=== PATIENT | female | born 1950 | race Caucasian/White ===

== ENCOUNTER 2023-05-13 10:03 | Emergency (ER) | payer MEDICARE, MEDICAID, SELFPAY ==
--- NOTE | ~2023-05-13 | CT_ITS ---
EXAMINATION: CT ABDOMEN AND PELVIS WITHOUT CONTRAST CLINICAL INFORMATION: Right lower quadrant pain COMPARISON: None available. TECHNIQUE: Multidetector volumetric imaging was performed from the superior aspect of the liver through the pubic symphysis. Sagittal and coronal reformatted images were obtained on the technologist's workstation. This CT examination was performed using dose optimization techniques as appropriate, variously including the following: *Automated exposure control *Adjustment of mA and/or kV according to patient size (this includes techniques or standardized protocols for targeted exams where dose is matched to indication/reason for exam; i.e. extremities or head) *Use of iterative reconstruction technique DLP: 462 mGy-cm FINDINGS: LUNG BASES: The visualized lung bases are unremarkable. LIVER, GALLBLADDER, AND BILIARY TREE: The liver is normal in size, shape, and attenuation. No focal hepatic lesion or biliary ductal dilatation is present. The gallbladder is unremarkable with no evidence of radiopaque gallstones, gallbladder wall thickening, or obvious pericholecystic inflammatory changes. PANCREAS: There is mild atrophy of the pancreas with no focal lesion seen. SPLEEN: Unremarkable. ADRENAL GLANDS: Unremarkable. KIDNEYS AND URETERS: The kidneys are normal in size, shape, and attenuation. No hydronephrosis, hydroureter, or calculi seen. No perinephric stranding. BLADDER: Unremarkable. GASTROINTESTINAL TRACT: There is a large amount of stool seen in ascending and sigmoid colon without distention. The small bowel loops are normal caliber. Appendix is normal caliber. No inflammatory process seen in the abdomen. ABDOMINAL WALL: Small umbilical hernia containing fat is noted. LYMPH NODES: Normal. VASCULAR: Unremarkable. PELVIC VISCERA: The uterus is anteverted and appears unremarkable. No adnexal mass seen. There is no free fluid. OSSEOUS STRUCTURES: No aggressive lytic or sclerotic process seen. There is mild degenerative disc changes and ventral spondylosis lower thoracic spine. CT/CT abdomen pelvis wo IV con IMPRESSION: 1. No acute intra-abdominal process seen. 2. Moderate constipation. Normal appendix. No obstruction Fleischner guidelines were followed.
[2023-05-13 10:08] VITALS: BP 173/102; PULSE 120; RESP 19; TEMP 36.6; O2SAT 98; BMI 25.0
[2023-05-13 11:04] LABS: Alanine Aminotransferase 14 U/L (0-31); Albumin Level 4.2 g/dL (3.5-5.0); Alkaline Phosphatase 104 U/L (39-117); Anion Gap 17 (12-20); Aspartate Amino Transferase 21 U/L (5-31); Bilirubin Direct 0.4 mg/dL (0.0-0.5); Bilirubin Total 1.1 mg/dL (0.0-1.0); Blood Urea Nitrogen 10 mg/dL (9-16); Calcium 10.1 mg/dL (8.4-10.2); Carbon Dioxide 25 mmol/L (22-29); Chloride 105 mmol/L (96-108); Creatinine Clr Calc Pharmacy 62.8; Estimated Glomerular Filt Rate > 60; Glucose Random 143 mg/dL (60-115); Lipase 60 U/L (8-78); Potassium 3.3 mmol/L (3.3-5.1); Sodium 144 mmol/L (135-145); Total Protein 7.8 g/dL (6.5-8.0)
[2023-05-13 13:05] VITALS: BP 170/89; PULSE 77; RESP 16; TEMP 37.2; O2SAT 99
--- NOTE | 2023-05-13 13:05 | ED.GENADULT ---
HPI - General Adult General Chief complaint: General Medical Stated complaint: Depression Crisis Time Seen by Provider: 05/13/23 12:42 Source: patient and family Mode of arrival: ambulatory Limitations: no limitations History of Present Illness HPI narrative: this is a 73-year-old female History of anxiety, depression, hypertension presenting to the emergency department with complaints of anxiety, depression, fatigue and malaise also reporting right lower quadrant abdominal pain times a week. Patient reports that she has not had much energy to do anything, feels anxious all day long, gets scared easily . She reports she moved from [place] a few months ago and since then has not been taking any of her medications. Not suicidal or homicidal. No hallucinations. Denies chest pain, shortness of breath, nausea, vomiting, changes in bowel habits or urination, headache, vision changes, dizziness or weakness. Related Data Allergies Allergy/AdvReac Type Severity Reaction Status Date / Time No Known Allergies Allergy Mild NONE Verified 05/13/23 10:07 Review of Systems Review of Systems: Constitutional : No Weight loss, No Fever, No Chills, No Fatigue, No Malaise ENT/Mouth : No sore throat, No Rhinorrhea Eyes: No Eye Pain, No Swelling, No Redness Cardiovascular : No Chest Pain, No SOB, No Dyspnea on Exertion, No Orthopnea, No Edema, No Palpitations Respiratory : No Cough, No Sputum, No Wheezing Gastrointestinal : No Nausea, No Vomiting, No Diarrhea, No Constipation, + abdominal Pain, No Hematochezia, No Melena Genitourinary : No Dysuria, No Urinary Frequency, No Hematuria, Musculoskeletal : No joint pain, No Myalgias, No Joint Swelling Skin : No Skin Lesions, No rash Neuro : No Weakness, No Numbness, No Dizziness, No Headache Psych : No Anxiety/Panic, + Depression All other systems reviewed and are negative Yes all other systems are reviewed and are negative [facility] Past Medical History Attestation statement: The following information was validated with the patient. Source: old records reviewed and nursing notes reviewed Social History Social History Alcohol intake: never Smoked in Last 30 Days: No Use of substances other than those prescribed or required for medical reasons: No Advance Directives: No Physical Exam ED Vital Signs: Vital Signs - 24 hr 05/13/23 10:08 05/13/23 13:05 05/13/23 14:00 Temperature 98 F 99.0 F Pulse Rate 120 H 77 92 Respiratory Rate 19 16 16 Blood Pressure 173/102 H 170/89 H 180/94 H Pulse Oximetry 98 99 99 Oxygen Delivery Method Room Air Room Air Room Air BMI result Body Mass Index 25.0 patient's blood pressure noted to be elevated likely secondary to non med compliance. Appearance: Alert.? Oriented X3.? No acute distress.? Head: Normocephalic, atraumatic, no step-offs or deformities Eyes: Pupils equal, round and reactive to light.? ENT: Pharynx normal.? Neck: Normal inspection.? Neck supple.? CVS: Normal heart rate and rhythm.? Pulses normal.? Respiratory: No respiratory distress.? Breath sounds normal.? Abdomen: Soft and +RLQ tenderness.? Skin: Skin warm and dry.? Normal skin color.? Normal skin turgor.? Extremities: No lower extremity edema.? No calf ttp. 5/5 strength to bilateral upper and lower extremities Neuro: Oriented X 3.? No motor deficit.? No sensory deficit. CN 2-12 intact Course Reevaluation(s) Reevaluation #1: CBC unremarkable. Chemistry no acute findings. UA clean. No acute intra-abdominal process seen. Moderate constipation. Normal appendix. No obstruction. Patient having normal bowel movements. At this time patient will be placed into observation to allow more time to be evaluated by care team due to her current depression. A time observation was started patient calm cooperative no acute distress will continue to monitor. Time: 15:29 Medications Administered Discontinued Medications Generic Name Dose Route Start Last Admin Trade Name Freq PRN Reason Stop Dose Admin Acetaminophen 650 mg 05/13/23 14:12 05/13/23 14:47 Acetaminophen 325 Mg Tablet PO 05/13/23 14:13 650 mg ONCE ONE Administration Medical Decision Making Medical Decision Making [facility] Narrative: 1300 This is a 73-year-old female presenting with anxiety, depression for the past few months worsening, non med compliant. Also reporting right lower quadrant abdominal pain times a week. Here with son. Physical examination with right lower quadrant tenderness to palpation. Patient noted to be hypertensive likely secondary to non med compliance. Abdominal pain likely UTI versus cystitis versus viral illness versus appendicitis. Unlikely cholecystitis, pancreatitis, diverticulitis, no signs of acute abdomen or obstruction. Depression likely secondary to non med compliance . Other differentials include bipolar disorder schizophrenia Or seasonal depression. Hypertension likely secondary to non med compliance I do not suspect hypertensive urgency or emergency. Plan labs, urine, imaging. Differential Diagnosis Differential Diagnoses: The differential diagnosis associated with the presentation includes Abdominal pain likely UTI versus cystitis versus viral illness versus appendicitis. Unlikely cholecystitis, pancreatitis, diverticulitis, no signs of acute abdomen or obstruction. Depression likely secondary to non med compliance . Other differentials include bipolar disorder schizophrenia Or seasonal depression. Hypertension likely secondary to non med compliance I do not suspect hypertensive urgency or emergency. Admission/Observation Consideration of admission/observation: Escalation of care including admission/observation considered Lab Data MDM Lab Attestation statement: I reviewed the patient's lab results. 05/13/23 10:42 05/13/23 10:42 Labs: Lab Results 05/13/23 Range/Units 10:42 WBC 6.0 (4.8-10.8) X10*3/uL RBC 4.49 (4.20-5.50) X10*6/uL Hgb 14.2 (12.0-16.0) g/dl Hct 43.2 (37.0-47.0) % MCV 96.2 (80.0-98.0) fL MCH 31.6 (27.0-33.0) pg MCHC 32.9 (31.0-35.0) g/dl RDW 14.2 (11.0-16.0) % Plt Count 204 (160-400) X10*3/uL MPV 9.4 (9.4-12.3) fL Immature Gran % (Auto) 0.2 (0.0-0.4) % Neut % (Auto) 46.6 (45-73) % Lymph % (Auto) 44.5 H (20-40) % [place] % (Auto) 6.4 (2-11) % Eos % (Auto) 1.5 (0-4) % Baso % (Auto) 0.8 (0-2) % Lymph # (Auto) 2.7 (1.2-4.9) X10*3/uL [place] # (Auto) 0.4 (0.1-1.2) X10*3/uL Eos # (Auto) 0.1 (0.0-0.4) X10*3/uL Baso # (Auto) 0.1 (0.0-0.2) X10*3/uL Abs Immat Gran (auto) 0.01 (0.00-0.03) X10*3/uL Absolute Neuts (auto) 2.8 (2.0-8.3) x10*3/uL Absolute Nucleated RBC 0.000 (0.0-0.012) X10*3/uL Nucleated RBC % (auto) 0.0 (0.0-0.2) /100WBC Sodium 144 (135-145) mmol/L Potassium 3.3 (3.3-5.1) mmol/L Chloride 105 (96-108) mmol/L Carbon Dioxide 25 (22-29) mmol/L Anion Gap 17 (12-20) BUN 10 (9-16) mg/dL Creatinine 0.67 (0.5-1.4) mg/dL Estim Creat Clear Calc 62.8 Estimated GFR > 60 Random Glucose 143 H (60-115) mg/dL Calcium 10.1 (8.4-10.2) mg/dL Total Bilirubin 1.1 H (0.0-1.0) mg/dL Direct Bilirubin 0.4 (0.0-0.5) mg/dL AST 21 (5-31) U/L ALT 14 (0-31) U/L Alkaline Phosphatase 104 (39-117) U/L Total Protein 7.8 (6.5-8.0) g/dL Albumin 4.2 (3.5-5.0) g/dL Lipase 60 (8-78) U/L Urine Color Yellow Urine Appearance Clear Urine pH 7.0 (5.0-9.0) Ur Specific [place] 1.020 (1.005-1.025) Urine Protein Negative (Neg-Trace) mg/dL Urine Glucose (UA) Negative (Negative) mg/dL Urine Ketones Trace (Negative) mg/dL Urine Blood Negative (Negative) Urine Nitrite Negative (Negative) Ur Leukocyte Esterase Small (1+) H (Negative) Urine RBC 0-2 (0-2) /HPF Urine WBC 6-10 H (0-5) /HPF Ur Squamous Epith Cells 0-2 (0-2) /HPF Urine Bacteria None Seen (None Seen) Hyaline Casts 0-2 (0-2) /LPF Independent Interpretation I performed an independent interpretation of an: CT Scan Radiology Impression Discussion of test interpretation with radiology: I have reviewed the radiologist's reading. Independent Historian Clinical information obtained from an independent historian. History obtained from or confirmed by: Other (son) Chronic Conditions Patient?s care impacted by: Hypertension Discharge Plan Discharge Clinical Impression: Depression, Abdominal pain, RLQ Patient Disposition: Still a Patient Instructions: Depression (ED), Abdominal Pain (ED) Additional Instructions: Take your medications as prescribed. If you were prescribed antibiotics today, it is important that you take your medication to their entirety, do not skip any doses, do not finish them early. Follow-up with your primary care provider this week. Return to the emergency department with new or worsening symptoms. Such as fevers, chills, chest pain, shortness of breath, nausea, vomiting, dizziness, headache, vision changes, lethargy In case of emergency call 911 Referrals: Physician,None [Primary Care Provider] - 2 days Stand Alone Forms: Work/School Release
--- NOTE | 2023-05-13 13:10 | PC.NURSE ---
a&ox3, vss and up to date. pt comes in today d/t increased depression for months. per pt's son, pt went to [place] and a family member while she was there - since returning, pt has been depressed ever since. pt currently denies SI/HI. pt able to eat/drink but is noncompliant w/ medications, has not been taking care of herself physically/mentally and just wants to stay in bed. pt also c/o 5/10 RLQ pain at this time. pt speaking w/ ED provider at this time. pt's son bedside for support. respirations even and unlabored. call burrell placed within reach.
[2023-05-13 14:00] VITALS: BP 180/94; PULSE 92; RESP 16; O2SAT 99
--- NOTE | 2023-05-13 14:56 | PC.NURSE ---
medication administered per provider order. pt and pt's son requesting if they can speak w/ care team. this RN will reach out.
--- NOTE | 2023-05-13 15:23 | PC.NURSE ---
Patient's son (Sabine) [phone] pt's son, sabine, is emergency contact for pt. this RN reached out to CARE team in regards to pt's depression. CARE team states that they are unaware on when they will see pt but pt gives verbal consent to this RN that any information can be discussed with primary contact.
[2023-05-13 16:00] VITALS: BP 179/95; PULSE 71; RESP 16; O2SAT 98
--- NOTE | 2023-05-13 16:15 | PC.NURSE ---
CARE TEAM requesting UTOX at this time - called chemistry and they stated that they will add it on.
[2023-05-13 17:18] LABS: Glucose, Whole Blood 95 mg/dL (60-115)
--- NOTE | 2023-05-13 17:20 | PC.NURSE ---
pt has hx of DM - POC obtained = 95mg/dL. pt's son back for support. pt son upset at this time d/t CARE team still not seeing pt. this RN politely informed pt and her son that d/t pt's physical/mental status and that she denied SI/HI, care team had other pt's in line as well. pharmacy was able to complete a medication reconciliation but pt's still unhappy w/ care at this time.
--- NOTE | 2023-05-13 17:59 | PC.NURSE ---
ED provider aware that pt/son is unhappy w/ care at this time. pt's son states that he is not unhappy w/ this RN/provider but with care team and would like to file a complaint. GARY Eckert speaking w/ pt at this time to formulate plan.
--- NOTE | 2023-05-13 18:09 | ED.GENADULT ---
HPI - General Adult General Chief complaint: General Medical Stated complaint: Depression Crisis Time Seen by Provider: 05/13/23 12:42 Source: patient and family Mode of arrival: ambulatory Limitations: no limitations Related Data Previous Rx's Medication Instructions Recorded atorvastatin 40 mg tablet 40 mg PO BEDTIME #30 tabs 05/13/23 docusate sodium 100 mg capsule 100 mg PO BID #20 caps 05/13/23 (Colace) lisinopril 40 mg tablet 40 mg PO DAILY #30 tabs 05/13/23 polyethylene glycol 3350 17 17 g PO BID #238 grams 05/13/23 gram/dose oral powder (Miralax) sennosides 8.6 mg tablet (senna) 8.6 mg PO BEDTIME #14 tabs 05/13/23 Allergies Allergy/AdvReac Type Severity Reaction Status Date / Time No Known Allergies Allergy Mild NONE Verified 05/13/23 10:07 [facility] Social History Social History Alcohol intake: never Smoked in Last 30 Days: No Use of substances other than those prescribed or required for medical reasons: No Advance Directives: No Physical Exam ED Vital Signs: Vital Signs - 24 hr 05/13/23 10:08 05/13/23 13:05 05/13/23 14:00 Temperature 98 F 99.0 F Pulse Rate 120 H 77 92 Respiratory Rate 19 16 16 Blood Pressure 173/102 H 170/89 H 180/94 H Pulse Oximetry 98 99 99 Oxygen Delivery Method Room Air Room Air Room Air 05/13/23 16:00 Temperature Pulse Rate 71 Respiratory Rate 16 Blood Pressure 179/95 H Pulse Oximetry 98 Oxygen Delivery Method Room Air BMI result Body Mass Index 25.0 Course Reevaluation(s) Reevaluation #1: CBC within normal limits. Chemistry unremarkable. Normal lipase. Point of care glucose 95. UA no infection. CT abdomen and pelvis no acute intra-abdominal process seen. Moderate constipation will give stool softeners for home. Normal appendix, no obstruction. Patient would to leave prior to seeing the care team. Not suicidal or homicidal. Patient would like a refill on atorvastatin 40 mg at bedtime and lisinopril 40 mg p.o. daily will fill these medications, has not had her A1c or sugar checked in a while her sugar was normal today I told her that since she has not had her diabetes meds in a while this should be managed by primary care I did provide her with a list of primary care is in the area that she should call 1st thing tomorrow morning to schedule appointment this week. Educated patient on diagnosis and treatment plan, answered all question, patient verbalizes understanding. At this time patient will be discharged home, advised to return with new or worsening symptoms. Educated on worrisome signs and symptoms and when to return. At this time I feel comfortable discharge home. Time: 18:10 Medications Administered Discontinued Medications Generic Name Dose Route Start Last Admin Trade Name Marla PRN Reason Stop Dose Admin Acetaminophen 650 mg 05/13/23 14:12 05/13/23 14:47 Acetaminophen 325 Mg Tablet PO 05/13/23 14:13 650 mg ONCE ONE Administration Medical Decision Making Lab Data 05/13/23 10:42 05/13/23 10:42 Labs: Lab Results 05/13/23 05/13/23 Range/Units 10:42 17:12 WBC 6.0 (4.8-10.8) X10*3/uL RBC 4.49 (4.20-5.50) X10*6/uL Hgb 14.2 (12.0-16.0) g/dl Hct 43.2 (37.0-47.0) % MCV 96.2 (80.0-98.0) fL MCH 31.6 (27.0-33.0) pg MCHC 32.9 (31.0-35.0) g/dl RDW 14.2 (11.0-16.0) % Plt Count 204 (160-400) X10*3/uL MPV 9.4 (9.4-12.3) fL Immature Gran % (Auto) 0.2 (0.0-0.4) % Neut % (Auto) 46.6 (45-73) % Lymph % (Auto) 44.5 H (20-40) % [place] % (Auto) 6.4 (2-11) % Eos % (Auto) 1.5 (0-4) % Baso % (Auto) 0.8 (0-2) % Lymph # (Auto) 2.7 (1.2-4.9) X10*3/uL [place] # (Auto) 0.4 (0.1-1.2) X10*3/uL Eos # (Auto) 0.1 (0.0-0.4) X10*3/uL Baso # (Auto) 0.1 (0.0-0.2) X10*3/uL Abs Immat Gran (auto) 0.01 (0.00-0.03) X10*3/uL Absolute Neuts (auto) 2.8 (2.0-8.3) x10*3/uL Absolute Nucleated RBC 0.000 (0.0-0.012) X10*3/uL Nucleated RBC % (auto) 0.0 (0.0-0.2) /100WBC Sodium 144 (135-145) mmol/L Potassium 3.3 (3.3-5.1) mmol/L Chloride 105 (96-108) mmol/L Carbon Dioxide 25 (22-29) mmol/L Anion Gap 17 (12-20) BUN 10 (9-16) mg/dL Creatinine 0.67 (0.5-1.4) mg/dL Estim Creat Clear Calc 62.8 Estimated GFR > 60 POC Glucose 95 (60-115) mg/dL Random Glucose 143 H (60-115) mg/dL Calcium 10.1 (8.4-10.2) mg/dL Total Bilirubin 1.1 H (0.0-1.0) mg/dL Direct Bilirubin 0.4 (0.0-0.5) mg/dL AST 21 (5-31) U/L ALT 14 (0-31) U/L Alkaline Phosphatase 104 (39-117) U/L Total Protein 7.8 (6.5-8.0) g/dL Albumin 4.2 (3.5-5.0) g/dL Lipase 60 (8-78) U/L Urine Color Yellow Urine Appearance Clear Urine pH 7.0 (5.0-9.0) Ur Specific [place] 1.020 (1.005-1.025) Urine Protein Negative (Neg-Trace) mg/dL Urine Glucose (UA) Negative (Negative) mg/dL Urine Ketones Trace (Negative) mg/dL Urine Blood Negative (Negative) Urine Nitrite Negative (Negative) Ur Leukocyte Esterase Small (1+) H (Negative) Urine RBC 0-2 (0-2) /HPF Urine WBC 6-10 H (0-5) /HPF Ur Squamous Epith Cells 0-2 (0-2) /HPF Urine Bacteria None Seen (None Seen) Hyaline Casts 0-2 (0-2) /LPF Discharge Plan Discharge Clinical Impression: Depression, Abdominal pain, RLQ Patient Disposition: Still a Patient Instructions: Depression (ED), Abdominal Pain (ED) Additional Instructions: Take your medications as prescribed. If you were prescribed antibiotics today, it is important that you take your medication to their entirety, do not skip any doses, do not finish them early. Follow-up with your primary care provider this week. Return to the emergency department with new or worsening symptoms. Such as fevers, chills, chest pain, shortness of breath, nausea, vomiting, dizziness, headache, vision changes, lethargy In case of emergency call [address] CT/CT abdomen pelvis wo IV con IMPRESSION: 1. No acute intra-abdominal process seen. 2. Moderate constipation. Normal appendix. No obstruction Fleischner guidelines were followed. Prescriptions: New sennosides [senna] 8.6 mg tablet 8.6 mg PO BEDTIME Qty: 14 0RF docusate sodium [Colace] 100 mg capsule 100 mg PO BID Qty: 20 0RF polyethylene glycol 3350 [Miralax] 17 gram/dose powder 17 g PO BID Qty: 238 0RF atorvastatin 40 mg tablet 40 mg PO BEDTIME Qty: 30 0RF lisinopril 40 mg tablet 40 mg PO DAILY Qty: 30 0RF Referrals: Physician,None [Primary Care Provider] - 2 days Stand Alone Forms: Work/School Release
--- NOTE | 2023-05-13 18:27 | PC.NURSE ---
pt/son now speaking w/ care team at this time. pt still wanting to be discharged at this time.
[2023-05-13 23:06] LABS: Amphetamine Screen Urine Not Detected (Not Detect); Barbiturates, Urine Not Detected (Not Detect); Benzodiazepines Screen Urine Not Detected (Not Detect); Cannabinoid Screen Urine Not Detected (Not Detect); Cocaine Screen Urine Not Detected (Not Detect); Fentanyl, urine Not Detected (Not Detect); Opiate Screen Urine Not Detected (Not Detect); Phencyclidine Screen Urine Not Detected (Not Detect)
--- NOTE | 2023-05-14 09:19 | MHC.CARE ---
The RAD Team made a referral to [facility]. The completed referral form and the Care Assessment were faxed to [facility] @ [phone]. T/w will document for a follow up call to be made on 07/15/23.
--- NOTE | 2023-05-14 09:23 | MHC.CARE ---
T/w attempted to contact pt's son [place] ) to inform about the referral. There was no answer and a message was not able to be left. T/w will document to have son contacted tomorrow.
--- NOTE | 2023-06-19 09:28 | HO.PHP ---
This junior technical writer met with the Patient and her son this morning for the purpose of completing an intake assessment for [facility]. The patients son is his mother's caregiver and asked to meet with this junior technical writer because he has information to provide. The patient's son stated that he was under the impression that the appt with this junior technical writer is a PCP appt. This junior technical writer was informed that he brought his mother to the [facility] ED to address sx's of depression,he reports that his mother was referred to [facility] through the ED. This junior technical writer explained [facility] to the patient and her son,it was determined that PHP is not the appropriate treatment for the patent at this time. The patients son stated that his mother needs a psychiatrist,therapist,day program. This junior technical writer recommended the [facility] walk in clinic for immediate assistance.
== END 2023-05-13 18:44 | disposition still patient (30) ==
PROVIDERS: Emergency Medicine; Emergency Provider Emergency Medicine Emergency Medical Services
DX: F32.A Depression, unspecified (principal); R10.31 Right lower quadrant pain; Z79.899 Other long term (current) drug therapy
CPT/HCPCS: 36415; 74176; 80048; 80076; 80307; 81001; 82947; 83690; 85025; 87086; 99284; S9485